=== PATIENT | male | born 1970 | race Caucasian/White ===

== ENCOUNTER 2017-10-10 12:28 | Emergency (ER) | payer OTHER ==
--- NOTE | 2017-10-10 13:24 | ER ---
Nurse's Notes [facility] Name: Ben Joseph Age: 47 yrs Sex: Male : 1970 Arrival Date: 10/10/2017 Time: 12:32 Bed 28 Private MD: None, None Diagnosis: Dental caries;Periodontal disease, unspecified;Unilateral inguinal hernia, without obstruction or gangrene Presentation: 10/10 12:59 Presenting complaint: Patient states: "i have a hernia that is killing my down in my tw2 groin and my tooth hurts". Transition of care: patient was not received from another setting of care. Onset of symptoms was October 10, 2017. Initial Sepsis Screen: Does the patient meet any 2 criteria? No. Patient's initial sepsis screen is negative. Does the patient have a suspected source of infection? Yes: No. Patient's initial sepsis screen is negative. Care prior to arrival: None. 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 - Social history:: Smoking status: Patient/guardian denies using tobacco, Patient uses alcohol, occasionally. Screenin:37 Abuse screen: Denies threats or abuse. Denies injuries from another. Nutritional sv screening: No deficits noted. Tuberculosis screening: No symptoms or risk factors identified. Fall Risk None identified. Assessment: 13:30 General: Appears in no apparent distress. uncomfortable, well developed, Behavior is sv calm, cooperative, appropriate for age. Pain: Complains of pain in mouth Pain currently is 5 out of 10 on a pain scale. Quality of pain is described as throbbing. Neuro: Level of Consciousness is awake, alert, obeys commands, Oriented to person, place, time, situation, Moves all extremities. Full function Gait is steady, Speech is normal. Respiratory: Respiratory effort is even, unlabored, Respiratory pattern is regular, symmetrical. EENT: Reports pain in mouth and left jaw. Derm: Skin is normal. Vital Signs: 13:00 BP 138 / 106; Pulse 82; Resp 18; Temp 98.0(TE); Pulse Ox 99% on R/A; Weight 90.72 kg tw2 (R); Height 6 ft. 0 in. (182.88 cm); Pain 7/10; 13:00 Body Mass Index 27.12 (90.72 kg, 182.88 cm) tw2 ED Course: 12:32 Patient arrived in ED. mr 12:33 None, None is Private Physician. mr 13:00 Triage completed. tw2 13:00 Arm band placed on. tw2 13:09 Seth Lozada MD is Attending Physician. gs 13:11 Sheron Menon, MISA is Primary Nurse. dm5 13:23 Mark Landis MD is Referral Physician. gs 13:35 Patient has correct armband on for positive identification. Bed in low position. sv 13:35 No provider procedures requiring assistance completed. Patient did not have IV access sv during this emergency room visit. Administered Medications: No medications were administered Outcome: 13:24 Discharge ordered by . gs 13:36 Discharged to home ambulatory. sv 13:36 Condition: stable 13:36 Discharge instructions given to patient, Instructed on discharge instructions, follow up and referral plans. Demonstrated understanding of instructions, follow-up care. 13:38 Patient left the ED. sv Signatures: Sheron Menon, RN RN dm5 Iris Dior RN RN sv Rivera, Maria mr Tamiko Workman RN RN tw2 Seth Lozada MD MD
--- NOTE | 2017-10-11 13:38 | EDPHYS ---
Physician Documentation [facility] Name: Ben Joseph Age: 47 yrs Sex: Male : 1970 Arrival Date: 10/10/2017 Time: 12:32 Bed 28 Private MD: None, None ED Physician Seth Lozada HPI: 10/10 13:49 This 47 yrs old Male presents to ER via Ambulatory with complaints of gs Toothache, Hernia. 13:49 The patient presents with broken tooth/teeth, pain. The problem is located in the lower gs left third molar. Onset: The symptoms/episode began/occurred 2 week(s) ago. Duration: The symptoms are continuous. Associated signs and symptoms: Pertinent negatives: chills, dysphagia, fever, swelling, vomiting. Severity of symptoms: At their worst the symptoms were moderate. The patient has been recently seen by a physician: dds called in abx has schedule for extraction monday. 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 - Social history:: Smoking status: Patient/guardian denies using tobacco, Patient uses alcohol, occasionally. ROS: 13:49 Abdomen/GI: Positive for hernia r inguinal. gs Exam: 13:49 Head/Face: Normocephalic, atraumatic. Eyes: Pupils equal round and reactive to light, gs extra-ocular motions intact. Lids and lashes normal. Conjunctiva and sclera are non-icteric and not injected. Cornea within normal limits. Periorbital areas with no swelling, redness, or edema. Neck: Trachea midline, no thyromegaly or masses palpated, and no cervical lymphadenopathy. Supple, full range of motion without nuchal rigidity, or vertebral point tenderness. No Meningismus. Chest/axilla: Normal chest wall appearance and motion. Nontender with no deformity. No lesions are appreciated. Cardiovascular: Regular rate and rhythm with a normal S1 and S2. No gallops, murmurs, or rubs. Normal PMI, no JVD. No pulse deficits. Respiratory: Lungs have equal breath sounds bilaterally, clear to auscultation and percussion. No rales, rhonchi or wheezes noted. No increased work of breathing, no retractions or nasal flaring. Abdomen/GI: Soft, non-tender, with normal bowel sounds. No distension or tympany. No guarding or rebound. No evidence of tenderness throughout. Back: No spinal tenderness. No costovertebral tenderness. Full range of motion. Skin: Warm, dry with normal turgor. Normal color with no rashes, no lesions, and no evidence of cellulitis. MS/ Extremity: Pulses equal, no cyanosis. Neurovascular intact. Full, normal range of motion. Neuro: Awake and alert, GCS 15, oriented to person, place, time, and situation. Cranial nerves II-XII grossly intact. Motor strength 5/5 in all extremities. Sensory grossly intact. Cerebellar exam normal. Normal gait. 13:49 Constitutional: The patient appears alert, awake. 13:49 ENT: Dental exam: abscess, is not appreciated, dental caries, that is mild, specifically in the lower left third molar (#17), gum swelling, not appreciated. 13:49 Abdomen/GI: Hernia: noted in the right femoral area, incarceration, is not appreciated, tenderness, that is mild. Vital Signs: 13:00 BP 138 / 106; Pulse 82; Resp 18; Temp 98.0(TE); Pulse Ox 99% on R/A; Weight 90.72 kg tw2 (R); Height 6 ft. 0 in. (182.88 cm); Pain 7/10; 13:00 Body Mass Index 27.12 (90.72 kg, 182.88 cm) tw2 Procedures: 13:49 Reduction:. reduction of rih, mild pressure no problem with reducing, no incarceration, gs will refer to surgery. MDM: 13:21 Patient medically screened. gs 13:49 Data reviewed: vital signs, nurses notes. Response to treatment: the patient's symptoms gs have markedly improved after treatment, and as a result, I will discharge patient. Administered Medications: No medications were administered Disposition: 10/10/17 13:24 Discharged to Home. Impression: Dental caries, Periodontal disease, unspecified, Unilateral inguinal hernia, without obstruction or gangrene. - Condition is Stable. - Discharge Instructions: Gingivitis, Lnud-on-Bmol, Hernia, [id number], Diet and Dental Disease. - Medication Reconciliation Form, Thank You Letter, Antibiotic Education, Prescription Opioid Use form. - Follow up: Private Physician; When: 2 - 3 days; Reason: Re-evaluation by your physician. Follow up: Mark Landis MD; When: 2 - 3 days; Reason: Re-evaluation by your physician. Signatures: Iris Dior, RN RN Tamiko Workman RN RN tw2 Seth Lozada MD MD
== END 2017-10-10 13:38 | disposition home or self-care (01) ==
LOC: ER 12:28
DX: K05.6 Periodontal disease, unspecified (principal); K40.90 Unilateral inguinal hernia, without obstruction or gangrene, not specified as recurrent
CPT/HCPCS: 99281

== ENCOUNTER 2018-01-15 08:16 | Day surgery (SDC) | payer OTHER ==
--- NOTE | 2018-01-11 14:20 | RAD REPORT ---
EXAM DESCRIPTION: RAD - Chest Pa And Lat (2 Views) - 01/11/2018 2:07 pm CLINICAL HISTORY: Preop chest, pending abdominal wall hernia repair COMPARISON: None. TECHNIQUE: PA and lateral views of the chest were obtained. FINDINGS: The lungs are clear of failure, infiltrate or mass. Interstitial markings are prominent bu t suspected to be baseline. Trachea is midline. Heart size is normal and central vasculature is wit hin normal limits. No pleural effusion or pneumothorax seen. Bony degenerative changes are present. Slight wedging seen of several vertebrae at the thoracolumbar junction. No blastic or lytic componen t. Acute etiology is unlikely. No aortic abnormality. IMPRESSION: No acute cardiopulmonary process. Slight wedging of several vertebrae near the thoracolumbar junction noted but doubtful as being acute .
[2018-01-11 15:39] LABS: Absolute Lymphocytes (CBC) 2.2 K/uL (0.7-4.9); Absolute Monocytes 0.6 K/uL (0.1-1.3); Absolute Neutrophil 3.7 K/uL (1.8-8.0); Basophils % 0.5 % (0-1.3); Eosinophils % 1.1 % (0-4.4); Hematocrit 47.1 % (39.6-49.0); Lymphocytes % 33.6 % (15.3-44.8); MCH 30.1 pg (27.0-35.0); MCV 87.2 fL (80-100); MPV 10.1 fL (7.6-11.3); Monocytes % 9.2 % (3.3-12.3)
--- NOTE | 2018-01-11 19:05 | EKG ---
Test Date: 2018-01-11 Test Time: 14:01:12 Pay Station Attendant: PAIGE MEASUREMENT RESULTS: Intervals: Rate: 66 [place]: 174 QRSD: 102 QT: 398 QTc: 417 [place]: P: 41 [place]: 174 QRS: 17 T: 13 INTERPRETIVE STATEMENTS: Normal sinus rhythm Normal ECG No previous ECG available for comparison Electronically Signed On 01-11-18 19:04:38 CDT by Raymnod Mcclellan
[2018-01-15] MEDS ORDERED: FENTANYL CITR 100 MCG/2 ML ONE (08:34)
[2018-01-15] MEDS ORDERED: CEFAZOLIN/SWI 1gm 1 GM/10 ML SYR ONE (08:43)
[2018-01-15] MEDS ORDERED: Ringers Lactate 1,000 ML IV ONE (08:43)
[2018-01-15] MEDS ORDERED: LIDOCAINE 2% MPF 5 ML VIAL ONE (09:00)
[2018-01-15] MEDS ORDERED: PROPOFOL 200 MG/20 ML VIAL IV ONE (09:00)
[2018-01-15] MEDS ORDERED: MIDAZOLAM HCL 2 MG/2 ML INJ ONE (09:00)
[2018-01-15] MEDS ORDERED: ROCURONIUM 50 MG/5 ML VIAL IV ONE (09:01)
[2018-01-15] MEDS ORDERED: FENTANYL CITR 250 MCG/5 ML ONE (09:01)
[2018-01-15] MEDS ORDERED: ONDANSETRON HCL 40 MG/20 ML VIAL ONE (09:02)
[2018-01-15] MEDS ORDERED: NEOSTIGMINE 1 MG/ML -5 ML SYRINGE ONE (09:03)
[2018-01-15] MEDS ORDERED: GLYCOPYRROLATE 0.2 MG/ML SYR ONE (10:08)
[2018-01-15] MEDS: MEPERIDINE HCL 50 MG/ML AMP ONE ×4 (10:43→11:19)
--- NOTE | 2018-01-15 10:54 | P.BOP ---
Preoperative diagnosis: tender large incarcerated right inguinal hernia Postoperative diagnosis: same Primary procedure: Open repair of tender large incarcerated right inguinal hernia Jewel Bearing Maker: KELLY SMITH Estimated blood loss: <10cc Specimen: hernia sac Findings: as above Anesthesia: General Complications: None Implants: large mesh sheet and plug Transferred to: Recovery Room Condition: Good
[2018-01-15] MEDS ORDERED: LABETALOL HCL 100 MG/20 ML ONE (11:30)
[2018-01-15] MEDS ORDERED: HYDROCODONE/APAP 5/325 MG TAB ONE (12:12)
--- NOTE | 2018-01-15 13:10 | DS ---
Diagnosis: Large incarcerated right inguinal hernia. Procedure: Open repair of large incarcerated right inguinal hernia. Disposition: Home. Activity: As tolerated. No heavy lifting. Followup: Followup in my office in 1 week. Call for appointment [phone]. Discharge Instructions: Keep area dry for 48 hours, then may shower. Cold compresses over the area for the next 24 hours. Medications: Include Vicodin q.4 hours p.r.n. pain. ORIN/ARACELIS Voice ID: [id number] Report ID: [id number]
--- NOTE | 2018-01-15 13:10 | OP ---
Date of Procedure: 01/15/2018 Surgeon: Mark Landis MD Seam Finisher: MOHIT Rendon. Preoperative Diagnosis: Tender large incarcerated right inguinal hernia. Postoperative Diagnosis: Tender large incarcerated right inguinal hernia. Procedure: Open repair of a large incarcerated right inguinal hernia with mesh. Estimated Blood Loss: Less than 10 cc. Specimen: Hernia sac. Findings: Incarcerated omentum on the large right inguinal hernia. Indications: This is the case of a 47-year-old patient, comes to us with above diagnosis. Fully exp lained the benefits, alternatives, and risks of repair of right inguinal hernia with mesh which inclu de, but not limited to infection, bleeding, damage to adjacent structures, anesthesia complication, r ecurrence, chronic pain, chronic numbness, vesicular damage, recurrence, AR, even . He also und erstands this may not relieve any symptoms. He might need more than one surgical intervention. He w as explained also the pros and cons of mesh placement over that area. All the questions were answere d to his satisfaction. He is alright with the use of mesh. Description Of Procedure: The patient was brought to the operating room, placed in supine position. Anesthesia was done without complication. Abdominal area was prepped and draped in a sterile fashio n in the inguinal region. A time-out was called. An incision was made on the right inguinal area. Zach's was opened. External oblique aponeurosis was opened in direction of its fibers to connect t o the superficial inguinal ring. Ilioinguinal nerve and iliohypogastric nerves were identified and p rotected behind external oblique aponeurosis. A Swati was placed around the spermatic cord. Crema steric fibers were opened, making sure that we protected vas deferens and the rest of the spermatic s tructures and then we identified a large hernia sac that was dissected all the way into the deep ingu inal ring. The patient has incarcerated omentum that looks viable, so it was reduced back into the a bdominal cavity. The hernia sac was then twisted, suture ligated with 2-0 Prolene twice. After that , I placed a mesh plug over that deep inguinal ring and secured it with VersaTack and then a mesh she ath on the floor of the canal securing that to the pubic tubercle, shelving edge of inguinal ligament , transversalis fascia, and the tails looped around the spermatic cord without strangulation. The ar ea was irrigated. No bleeding. Ilioinguinal nerve and iliohypogastric nerve brought back into the i nguinal canal. The superficial inguinal ring was reconstructed and external oblique aponeurosis was closed with a 2-0 Prolene in a running fashion making sure the nerves are not included. The area was irrigated. Subcutaneous tissue closed with 3-0 chromic and skin with [place]. Sponge count and ins trument counts were correct. At the end of the case, the testicles were in the scrotum. The patient was sent to recovery in stable condition. ORIN/ARACELIS Voice ID: [id number] Report ID: [id number]
== END 2018-01-15 13:15 | disposition home or self-care (01) ==
LOC: OR 08:16
PROVIDERS: ATTEND Surgery
PROC: 0YU50JZ Supplement Right Inguinal Region with Synthetic Substitute, Open Approach (ICD-10-PCS; principal; 2018-01-15 10:00)
DX: K40.30 Unilateral inguinal hernia, with obstruction, without gangrene, not specified as recurrent (principal)
CPT/HCPCS: 36415; 71046; 80048; 85025; 88302; 93005; J0690; J2175; J2250; J2405; J2710; J3010

== ENCOUNTER 2021-11-15 20:16 | Emergency (ER) | payer BC, OTHER ==
--- OUTSIDE RECORDS SUMMARY | 2021-11-15 20:21 | XMS REPORT | Continuity of Care Document ---
:1970 Author Organization [facility] t Address [address] [place] [address] Care Team Providers Name Role Phone GIOVANNA Attending Clinician Unavailable SON Attending Clinician Unavailable LAWANDA Attending Clinician Unavailable Lenny Salamanca Attending Clinician [phone] GIOVANNA Admitting Clinician Unavailable SON Admitting Clinician Unavailable LAWANDA Admitting Clinician Unavailable Payers Payer Name Policy Type Policy Number Effective Date Expiration Date S anace [place] [id number] 2020 00:00:00 [place] Problems Condition Condition Condition Status Onset Resolution Last Treating Co mments Source Name Details Category Date Date Treatment Clinician Date Hypertensi Hypertensi Problem Active 2020-06 [facility] [place] ve ve 2-21 da disorder Disorder 00:00: Medica l 00 Group Anxiety Anxiety Problem Active 2019-06 [place] 2-28 da 00:00: Medical 00 Group Bilateral Bilateral Problem Active 2019-06 [facility] [place] shoulder Shoulder 2-28 da joint pain Joint Pain 00:00: Me dical 00 Group Essential Essential Problem Active 2019-06 [facility] hypertensi Hypertensi 2-10 da on on 00:00: Medical 00 Group Gastroesop Gastroesop Problem Active 2019-06 [facility] [place] hageal hageal 2-10 da reflux Reflux 00:00: Medical disease Disease 00 Group Hypothyroi Hypothyroi Problem Active 0 M [facility] dism dism 9-25 da 00:00: Medical 00 Group Allergies, Adverse Reactions, Alerts This patient has no known allergies or adverse reactions. Social History Smoking Status Start Date Stop Date Source Never Smoker [facility] Medications Ordered Filled Start Stop Current Ordering Indication Dosage Frequency Signature Comments Components Source Medication Medication Date Date Medication? Clinician (SIG) Name Name Euthyrox 25 Euthyrox 25 No Euthyrox [place] mcg tablet mcg tablet 25 mcg d a TAKE ONE TAKE ONE tablet Medic al (1) (1) TAKE ONE Group TABLET(S) TABLET(S) (1) BY MOUTH BY MOUTH TABLET(S) ONCE A DAY. ONCE A DAY. BY MOUTH ONCE A DAY. lisinopril lisinopril No lisinopril [place] 20 mg 20 mg 20 mg da tablet TAKE tablet TAKE tablet Medical ONE (1) ONE (1) TAKE ONE Group TABLET(S) TABLET(S) (1) BY MOUTH BY MOUTH TABLET(S) ONCE A DAY. ONCE A DAY. BY MOUTH ONCE A DAY. nebivolol nebivolol No nebivolol [place] 10 mg 10 mg 10 mg da tablet TAKE tablet TAKE tablet Medical ONE (1) ONE (1) TAKE ONE Group TABLET(S) TABLET(S) (1) BY MOUTH BY MOUTH TABLET(S) ONCE A DAY. ONCE A DAY. BY MOUTH ONCE A DAY. rosuvastati rosuvastati No rosuvastat [place] n 10 mg n 10 mg in 10 mg da tablet TAKE tablet TAKE tablet Medical ONE (1) ONE (1) TAKE ONE Group TABLET(S) TABLET(S) (1) BY MOUTH BY MOUTH TABLET(S) ONCE A DAY. ONCE A DAY. BY MOUTH ONCE A DAY. Vital Signs Vital Name Observation Time Observation Value Comments Source BP Diastolic 2021-11-11 00:00:00 78 mm[Hg] [facility] Height 2021-11-11 00:00:00 72 [in_i] [facility] BMI (Body Mass 2021-11-11 00:00:00 32.4 kg/m2 [facility] Index) Group BP Systolic 2021-11-11 00:00:00 112 mm[facility]Hg] [facility] Body Weight 2021-11-11 00:00:00 239 [lb_av] [facility] BP Diastolic 2021-09-16 00:00:00 80 mm[Hg] [facility] Height 2021-09-16 00:00:00 72 [in_i] [facility] BMI (Body Mass 2021-09-16 00:00:00 30.2 kg/m2 [facility] Index) Group BP Systolic 2021-09-16 00:00:00 132 mm[Hg] [facility] Body Weight 2021-09-16 00:00:00 223 [lb_av] [facility] BP Diastolic 2021-08-17 00:00:00 97 mm[Hg] [facility] Height 2021-08-17 00:00:00 72 [in_i] [facility] BMI (Body Mass 2021-08-17 00:00:00 29.6 kg/m2 [facility] Index) Group BP Systolic 2021-08-17 00:00:00 143 mm[Hg] [facility] Body Weight 2021-08-17 00:00:00 218.6 [lb_av] [facility] BP Diastolic 2021-08-03 00:00:00 76 mm[Hg] [facility] Height 2021-08-03 00:00:00 72 [in_i] [facility] BMI (Body Mass 2021-08-03 00:00:00 29.7 kg/m2 [facility] Index) Group BP Systolic 2021-08-03 00:00:00 122 mm[Hg] [facility] Body Weight 2021-08-03 00:00:00 219.2 [lb_av] [facility] BP Diastolic 2021-07-06 00:00:00 80 mm[Hg] [facility] Height 2021-07-06 00:00:00 72 [in_i] [facility] BMI (Body Mass 2021-07-06 00:00:00 29.6 kg/m2 [facility] Index) Group BP Systolic 2021-07-06 00:00:00 120 mm[Hg] [facility] Body Weight 2021-07-06 00:00:00 218.3 [lb_av] [facility] BP Diastolic 2021-06-08 00:00:00 80 mm[Hg] [facility] Height 2021-06-08 00:00:00 72 [in_i] [facility] BMI (Body Mass 2021-06-08 00:00:00 29.5 kg/m2 [facility] Index) Group BP Systolic 2021-06-08 00:00:00 122 mm[Hg] [facility] Body Weight 2021-06-08 00:00:00 217.3 [lb_av] [facility] Procedures Procedure Date / Time Performing Source Performed Clinician NM, hepatobiliary scan, w/ CCK 2021-06-08 [facility] Esophagogastroduodenoscopy (Surg) [facility] Plan of Care Planned Activity Planned Date Details Comments Source Future Appointment 2022-02-17 Alex Alvarengae, 600 [facility] 08:30:00 [facility] [address]; , [place] [address] Encounters Start End Encounter Admission Attending Care Care Encounter Source Date/Time Date/Time Type Type Clinicians Facility Department ID 2021-11-11 2021-11-11 Outpatient IHDE_G MMG [facility] [id number] 022 [place] 04:16:00 04:16:00 0527 [facility] 2021-11-11 2021-11-11 Outpatient IHDE_G MMG MM[facility] [id number] [place] 04:16:00 04:16:00 0526 [facility] 2021-11-11 2021-11-11 Alex [facility] [place] - [id number] [facility] 00:00:00 00:00:00 Carli Gutierrez MD: Medical Medica l [address] [facility] [address], [place] [address] , Ph. [phone] 2021-10-26 2021-10-26 Outpatient IHDE_G MMG MMG [id number] 022 [place] 01:00:00 01:00:00 0510 [facility] 2021-10-26 2021-10-26 Outpatient IHDE_G MMG MMG [id number] [id number] [place] 01:00:00 01:00:00 0511 [facility] 2021-10-26 2021-10-26 Outpatient IHDE_G MMG MMG [id number] [place] 01:00:00 01:00:00 0513 [facility] 2021-10-25 2021-10-25 Outpatient IHDE_G MMG MMG [id number] [place] 05:57:00 05:57:00 0509 [facility] 2021-10-13 2021-10-13 Outpatient SAGLIME_DEBORAH [facility] [place] [id number] [place] 04:51:00 04:51:00 N [id number] [facility] Program 2021-10-07 2021-10-07 Outpatient ERSTEVENSON_R [facility] [id number] [place] 11:35:00 11:35:00 [facility] 2021-10-07 2021-10-07 Outpatient Cheikh [facility] [id number] 00:00:00 00:00:00 Jc [id number] Metaline [id number] 2021-10-01 2021-10-01 Outpatient IHDE_G MMG [facility] [id number] 022 [place] 03:31:00 03:31:00 0415 [facility] 2021-10-01 2021-10-01 Outpatient IHDE_G MMG MMG [id number] 022 [place] 03:31:00 03:31:00 0428 [facility] 2021-09-16 2021-09-16 Outpatient IHDE_G MMG MMG [id number] [place] 09:29:00 09:29:00 0331 [facility] 2021-09-16 2021-09-16 Outpatient IHDE_G MMG [facility] [id number] [place] 09:29:00 09:29:00 0404 [facility] 2021-09-16 2021-09-16 Alex [facility] [place] - [id number] M [facility] 00:00:00 00:00:00 Carli Gutierrez MD: Medical Medica [address], [facility] [place] [address] , Ph. [phone] 2021-08-18 2021-08-18 Outpatient IHDE_G MMG MMG [id number] 022 [place] 04:01:00 04:01:00 0302 Medical Group 2021-08-17 2021-08-17 Outpatient IHDE_G MMG MMG [id number] [place] 09:29:00 09:29:00 0301 [facility] 2021-08-17 2021-08-17 Alex [facility] [place] - [id number] [place] 00:00:00 00:00:00 Carli Gutierrez MD: Medical Medica [address], surgery [place] [address] , Ph. [phone] 2021-08-03 2021-08-03 Outpatient IHDE_G MMG MMG [id number] [place] 09:11:00 09:11:00 0215 [facility] 2021-08-03 2021-08-03 Outpatient IHDE_G MMG MMG [id number] [place] 09:11:00 09:11:00 0216 [facility] 2021-08-03 2021-08-03 Outpatient IHDE_G MMG MMG [id number] [place] 09:11:00 09:11:00 0218 [facility] 2021-08-03 2021-08-03 Alxe MM[facility] [place] - [id number] M [place] 00:00:00 00:00:00 Carli Gutierrez MD: Medical Medica [address], [place] [address] , Ph. [phone] 2021-07-21 2021-07-21 Outpatient IHDE_G MMG MMG [id number] 022 [place] 12:11:00 12:11:00 0202 [facility] 2021-07-06 2021-07-06 Outpatient IHDE_G MMG MMG [id number] [place] 09:35:00 09:35:00 0118 [facility] 2021-07-06 2021-07-06 Outpatient IHDE_G MMG MMG [id number] [place] 09:35:00 09:35:00 0119 [facility] 2021-07-06 2021-07-06 Alex [facility] [place] - [id number] [place] 00:00:00 00:00:00 Carli Gutierrez MD: Medical Medica l 600 [facility] [address], [place] [address] , Ph. [phone] 2021-06-09 2021-06-09 Outpatient IHDE_G MMG MMG [id number] 022 [place] 03:04:00 03:04:00 0105 [facility] 2021-06-09 2021-06-09 Outpatient IHDE_G MMG MMG [id number] 022 [place] 03:04:00 03:04:00 0107 [facility] 2021-06-08 2021-06-08 Outpatient IHDE_G MMG MMG [id number] [place] 10:37:00 10:37:00 1221 [facility] 2021-06-08 2021-06-08 Outpatient IHDE_G MMG MMG [id number] 021 [place] 10:37:00 10:37:00 1222 [facility] 2021-06-08 2021-06-08 Alex [facility] [place] - [id number] M [facility] 00:00:00 00:00:00 Carli Gutierrez MD: Medical Medica l 600 [facility] [address], [place] [address] , Ph. [phone] 2021-05-27 2021-05-27 Outpatient IHDE_G MMG MMG [id number] 021 [place] 11:34:00 11:34:00 1209 [facility] 2021-04-06 2021-04-06 Outpatient ERSTEVENSON_R [facility] [id number] - [place] 03:26:00 03:26:00 019 [facility] 2021-04-06 2021-04-06 Outpatient Cheikh [facility] [id number] 00:00:00 00:00:00 Jc [id number] Galvez [id number] 2021-04-06 2021-04-06 Outpatient Cheikh [facility] [id number] 00:00:00 00:00:00 Jc [id number]-a Lenny [id number] 2021-01-01 2021-01-01 Outpatient ERICKSON_R [facility] [id number] [place] 11:56:00 11:56:00 716 [facility] 2021-01-01 2021-01-01 Outpatient Cheikh [facility] [id number] 00:00:00 00:00:00 Jc [id number] Lenny [id number] 2020-12-11 2020-12-11 Outpatient ERICKSON_R [facility] [id number] [place] 03:22:00 03:22:00 625 [facility] 2020-09-25 2020-09-25 Outpatient ERICKSON_R [facility] [id number] - [place] 04:28:00 04:28:00 409 [facility] 2020-09-25 2020-09-25 Outpatient Cheikh, [facility] [id number] 00:00:00 00:00:00 Jc [id number] Lenny [id number] 2020-06-26 2020-06-26 Outpatient ERICKSON_R [facility] [id number] - [place] 04:05:00 04:05:00 108 [facility] 2020-06-18 2020-06-18 Outpatient ERICKSON_R [facility] [id number] - [place] 12:43:00 12:43:00 231 [facility] 2020-06-18 2020-06-18 [id number] [place] 09:53:00 09:53:00 N [id number] [facility] 2020-06-15 2020-06-15 Outpatient ERICKSON_R [facility] [id number] - [place] 10:54:00 10:54:00 228 [facility] Results Test Description Test Time Test Comments Results Result Comments Source CBC W Auto Differential panel - Blood 2021-08-03 07:26:00 Test Item Value Reference Range Interpretation Comme nts white blood count (test code = white blood count) 8.2 K/uL 4.0- 12.3 red blood count (test code = red blood count) 4.41 M/uL 3.80-5.8 0 hemoglobin (test code = hemoglobin) 13.3 g/dL 11.7-17.2 hematocrit (test code = hematocrit) 40.6 % 35.0-51.0 MCV [Entitic volume] (test code = 80029-3) 92.1 fL 83.0-100.0 mean corpuscular hemoglobin (test code = mean corpuscular 30.2 pg 26.8-33.4 hemoglobin) mean corpuscular HGB conc (test code = mean corpuscular HGB 32.8 g/dL 30.0-35.0 conc) red cell distribution width (test code = red cell 12.7 % 12.0 -14.0 distribution width) platelet count (test code = platelet count) 235 K/uL 175-450 mean platelet volume (test code = mean platelet volume) 10.0 fL 9.4-12.6 Segmented neutrophils/100 leukocytes in Blood (test code = 68.0 % 44.7-82.4 95449-7) Immature granulocytes [#/volume] in Blood (test code = 0.04 K/uL 0.00-0.03 H 12492-8) lymphocyte% (test code = lymphocyte%) 19.8 % 10.0-50.0 mono % (test code = mono %) 11.2 % 3.9-13.4 eos % (test code = eos %) 0.1 % 0.0-6.4 Basophils/100 leukocytes in Specimen (test code = 64592-4) 0.4 % 0.2-1.2 Band form neutrophils [#/volume] in Blood (test code = 5.57 K/uL 1.78-5.38 H 19158-6) Lymphocytes [#/volume] in Specimen by Automated count (test 1.62 K/uL 1.32-3.57 code = 56700-5) mono # (test code = mono #) 0.92 K/uL 0.30-0.82 H eos # (test code = eos #) 0.01 K/uL 0.04-0.54 L basophil # (test code = basophil #) 0.03 K/uL 0.01-0.08 NRBC% (test code = NRBC%) 0 /100 WBC 0-0.2 NRBC# (test code = NRBC#) 0 K/uL [facility] - Serum or Plasma 2021-08-03 07:26:00 Test Item Value Reference Range Interpretation Comments Glucose [Mass/volume] in Serum or 121 mg/dL 74-106 H Plasma (test code = 2345-7) Urea nitrogen [Mass/volume] in 11 mg/dL 6-20 Serum or Plasma (test code = 3094-0) osmolality calculated,serum (test 275 mOsm/kg 280-300 L code = osmolality calculated,serum) creatinine (test code = 0.95 mg/dL 0.70-1.20 creatinine) glomerular filtration rate (test >60.00 code = glomerular filtration rate) Urea nitrogen/Creatinine [Mass 11.6 12.0-20.0 L Ratio] in Serum or Plasma (test code = 3097-3) sodium level (test code = sodium 137 mmol/L 135-145 level) potassium level (test code = 3.8 mmol/L 3.5-5.2 potassium level) chloride level (test code = 100 mmol/L 98-108 chloride level) CO2 (test code = CO2) 25 mmol/L 21-32 anion gap (test code = anion gap) 15.8 mEq/L 12.0-20.0 calcium level (test code = 9.1 mg/dL 8.6-10.0 calcium level) total protein (test code = total 7.5 g/dL 6.6-8.7 protein) albumin (test code = albumin) 4.4 g/dL 3.5-5.2 globulin (test code = globulin) 3.1 g/dL 1.5-4.5 A/G ratio (test code = A/G ratio) 1.4 >1.0 bilirubin,total (test code = 0.8 mg/dL 0.0-1.2 bilirubin,total) AST/SGOT (test code = AST/SGOT) 46 U/L 15-40 H Alanine aminotransferase 37 U/L 0-41 [Enzymatic activity/volume] in Serum or Plasma (test code = 1742-6) Alkaline phosphatase [Enzymatic 93 U/L 40-130 activity/volume] in Serum or Plasma (test code = 6768-6) [facility], method unspecified - [id number] 00:00:00NeutrophilsBandLymphocyteAtypical LymphMonocyteEosinophilBasophilMetamyelocyteMyelocytePromyelocyteBlastsNucleated Red Blood CellAbs Neutrophil Count (Man)Abs Lymph Count (Man)Abs Monocyte Count (Man)Abs Eosinophil Count (Man)Abs Basophil Count (Man)Platelet Estimate [facility] ([facility]OVID-19) RNA [Presence] in Respiratory specimen by SHANTE with probe [id number] 06:37:2976828-7HvyrxubuoBeacham Memorial HospitalComprehensive metabolic 2000 panel - Serum or [id number] 08:18:00 Test Item Value Reference Range Interpretation Comments glucose (test code = glucose) 102 mg/dL 74-106 Urea nitrogen [Mass/volume] in 11 mg/dL 6-20 Serum or Plasma (test code = 3094-0) osmolality calculated,serum (test 279 mOsm/kg 280-300 L code = osmolality calculated,serum) creatinine (test code = 0.76 mg/dL 0.70-1.20 creatinine) glomerular filtration rate (test >60.00 code = glomerular filtration rate) Urea nitrogen/Creatinine [Mass 14.5 12.0-20.0 Ratio] in Serum or Plasma (test code = 3097-3) sodium level (test code = sodium 140 mmol/L 135-145 level) Potassium [Moles/volume] in Body 4.5 mmol/L 3.5-5.2 fluid (test code = 2821-7) chloride level (test code = 105 mmol/L 98-108 chloride level) CO2 (test code = CO2) 27 mmol/L 21-32 anion gap (test code = anion gap) 12.5 mEq/L 12.0-20.0 calcium level (test code = 8.8 mg/dL 8.6-10.0 calcium level) total protein (test code = total 7.8 g/dL 6.6-8.7 protein) albumin (test code = albumin) 4.4 g/dL 3.5-5.2 globulin (test code = globulin) 3.4 g/dL 1.5-4.5 A/G ratio (test code = A/G ratio) 1.3 >1.0 bilirubin,total (test code = 0.4 mg/dL 0.0-1.2 bilirubin,total) AST/SGOT (test code = AST/SGOT) 19 U/L 15-40 Alanine aminotransferase 16 U/L 0-41 [Enzymatic activity/volume] in Serum or Plasma (test code = 1742-6) Alkaline phosphatase [Enzymatic 106 U/L 40-130 activity/volume] in Serum or Plasma (test code = 6768-6) [facility] W Auto Differential panel - [id number] 00:00:00 Test Item Value Reference Range Interpretation Comments white blood count (test code = 6.1 K/uL 4.0-12.3 white blood count) red blood count (test code = red 4.86 M/uL 3.80-5.80 blood count) hemoglobin (test code = 14.7 g/dL 11.7-17.2 hemoglobin) hematocrit (test code = 43.4 % 35.0-51.0 hematocrit) MCV [Entitic volume] (test code = 89.3 fL 83.0-100.0 98892-0) mean corpuscular hemoglobin (test 30.2 pg 26.8-33.4 code = mean corpuscular hemoglobin) mean corpuscular HGB conc (test 33.9 g/dL 30.0-35.0 code = mean corpuscular HGB conc) red cell distribution width (test 12.1 % 12.0-14.0 code = red cell distribution width) platelet count (test code = 200 K/uL 175-450 platelet count) mean platelet volume (test code = 9.7 fL 9.4-12.6 mean platelet volume) Segmented neutrophils/100 59.3 % 44.7-82.4 leukocytes in Blood (test code = 54631-7) Immature granulocytes [#/volume] 0.02 K/uL 0.00-0.03 in Blood (test code = 68931-1) lymphocyte% (test code = 30.2 % 10.0-50.0 lymphocyte%) mono % (test code = mono %) 9.0 % 3.9-13.4 eos % (test code = eos %) 1.0 % 0.0-6.4 Basophils/100 leukocytes in 0.2 % 0.2-1.2 Specimen (test code = 73473-5) Band form neutrophils [#/volume] 3.64 K/uL 1.78-5.38 in Blood (test code = 84843-2) Lymphocytes [#/volume] in Specimen 1.85 K/uL 1.32-3.57 by Automated count (test code = 89043-8) mono # (test code = mono #) 0.55 K/uL 0.30-0.82 eos # (test code = eos #) 0.06 K/uL 0.04-0.54 basophil # (test code = basophil 0.01 K/uL 0.01-0.08 #) NRBC% (test code = NRBC%) 0 /100 WBC 0-0.2 NRBC# (test code = NRBC#) 0 K/uL [facility] CenterDifferent[facility] panel, method unspecified - [id number] 00:00:00NeutrophilsBandLymphocyteAtypical LymphMonocyteEosinophilBasophilMetamyelocyteMyelocytePromyelocyteBlastsNucleated Red Blood CellAbs Neutrophil Count (Man)Abs Lymph Count (Man)Abs Monocyte Count (Man)Abs Eosinophil Count (Man)Abs Basophil Count (Man)Platelet EstimatePlatelet MorphologyPoikilocytosisAni socytosisMicrocytosisMacrocytosisTarget CellsTear Drop CellsOvalocytesToxic GranulationHypersegmented PolysToxic VacuolationSmudge CellsMatagoNorthwest Mississippi Medical CenterARS-CoV-2 (COVID-19) RNA [Presence] in Respiratory specimen by SHANTE with probe [id number] 08:10:7958700-2QrmidqzevOchsner Rush HealthARS-CoV-2 (COVID-19) RNA [Presence] in Respiratory specimen by SHANTE with probe detection 2021-06-21 08:10:8387714-0QsjouikcnBeacham Memorial HospitalComprehensive metabolic 2000 panel - Serum or [id number] 10:48:00 Test Item Value Reference Range Interpretation Comments glucose (test code = glucose) 111 mg/dL 74-106 H Urea nitrogen [Mass/volume] in 11 mg/dL 6-20 Serum or Plasma (test code = 3094-0) osmolality calculated,serum (test 278 mOsm/kg 280-300 L code = osmolality calculated,serum) creatinine (test code = 0.8 mg/dL 0.70-1.20 creatinine) glomerular filtration rate (test >60.00 code = glomerular filtration rate) Urea nitrogen/Creatinine [Mass 13.8 12-20 Ratio] in Serum or Plasma (test code = 3097-3) sodium level (test code = sodium 139 mmol/L 135-145 level) Potassium [Moles/volume] in Body 4.4 mmol/L 3.5-5.2 fluid (test code = 2821-7) chloride level (test code = 102 mmol/L 98-108 chloride level) CO2 (test code = CO2) 27 mmol/L 21-32 anion gap (test code = anion gap) 14.4 mEq/L 12-20 calcium level (test code = 9.0 mg/dL 8.6-10.0 calcium level) total protein (test code = total 7.6 g/dL 6.6-8.7 protein) albumin (test code = albumin) 4.5 g/dL 3.5-5.2 globulin (test code = globulin) 3.1 gm/dL A/G ratio (test code = A/G ratio) 1.5 >1.0 bilirubin,total (test code = 0.6 mg/dL 0.0-1.2 bilirubin,total) AST/SGOT (test code = AST/SGOT) 20 U/L 15-40 Alanine aminotransferase 15 U/L 0-41 [Enzymatic activity/volume] in Serum or Plasma (test code = 1742-6) Alkaline phosphatase [Enzymatic 105 U/L 40-130 activity/volume] in Serum or Plasma (test code = 6768-6) [facility] 2000 panel - Serum or Plasma 2021-06-16 10:48:00 Test Item Value Reference Range Interpretation Comments glucose (test code = glucose) 111 mg/dL 74-106 H Urea nitrogen [Mass/volume] in 11 mg/dL 6-20 Serum or Plasma (test code = 3094-0) osmolality calculated,serum (test 278 mOsm/kg 280-300 L code = osmolality calculated,serum) creatinine (test code = 0.8 mg/dL 0.70-1.20 creatinine) glomerular filtration rate (test >60.00 code = glomerular filtration rate) Urea nitrogen/Creatinine [Mass 13.8 12-20 Ratio] in Serum or Plasma (test code = 3097-3) sodium level (test code = sodium 139 mmol/L 135-145 level) Potassium [Moles/volume] in Body 4.4 mmol/L 3.5-5.2 fluid (test code = 2821-7) chloride level (test code = 102 mmol/L 98-108 chloride level) CO2 (test code = CO2) 27 mmol/L 21-32 anion gap (test code = anion gap) 14.4 mEq/L 12-20 calcium level (test code = 9.0 mg/dL 8.6-10.0 calcium level) total protein (test code = total 7.6 g/dL 6.6-8.7 protein) albumin (test code = albumin) 4.5 g/dL 3.5-5.2 globulin (test code = globulin) 3.1 gm/dL A/G ratio (test code = A/G ratio) 1.5 >1.0 bilirubin,total (test code = 0.6 mg/dL 0.0-1.2 bilirubin,total) AST/SGOT (test code = AST/SGOT) 20 U/L 15-40 Alanine aminotransferase 15 U/L 0-41 [Enzymatic activity/volume] in Serum or Plasma (test code = 1742-6) Alkaline phosphatase [Enzymatic 105 U/L 40-130 activity/volume] in Serum or Plasma (test code = 6768-6) [facility] W Auto Differential panel - [id number] 00:00:00 Test Item Value Reference Range Interpretation Comments white blood count (test code = 5.3 K/uL 4.0-12.3 white blood count) red blood count (test code = red 4.76 M/uL 3.80-5.80 blood count) hemoglobin (test code = 14.5 g/dL 11.7-17.2 hemoglobin) hematocrit (test code = 43.6 % 35.0-51.0 hematocrit) MCV [Entitic volume] (test code = 91.6 fL 83-100 97806-6) mean corpuscular hemoglobin (test 30.5 pg 26.8-33.4 code = mean corpuscular hemoglobin) mean corpuscular HGB conc (test 33.3 g/dL 30-35 code = mean corpuscular HGB conc) red cell distribution width (test 12.4 % 12.0-14.0 code = red cell distribution width) platelet count (test code = 199 K/uL 175-450 platelet count) mean platelet volume (test code = 9.9 fL 9.4-12.6 mean platelet volume) Segmented neutrophils/100 53.8 % 44.7-82.4 leukocytes in Blood (test code = 89030-7) Immature granulocytes [#/volume] 0.0 K/uL 0.0-0.03 in Blood (test code = 96672-3) lymphocyte% (test code = 32.8 % 10.0-50.0 lymphocyte%) mono % (test code = mono %) 10.9 % 3.9-13.4 eos % (test code = eos %) 1.7 % 0.0-6.4 Basophils/100 leukocytes in 0.6 % 0.2-1.2 Unspecified specimen (test code = 08221-9) Band form neutrophils [#/volume] 2.86 K/uL 1.78-5.38 in Blood (test code = 99729-2) Lymphocytes [#/volume] in 1.7 K/uL 1.32-3.57 Unspecified specimen by Automated count (test code = 11678-4) mono # (test code = mono #) 0.58 K/uL 0.30-0.82 eos # (test code = eos #) 0.09 K/uL 0.04-0.54 basophil # (test code = basophil 0.03 K/uL 0.01-0.08 #) NRBC% (test code = NRBC%) 0 /100 WBC 0-0.2 NRBC# (test code = NRBC#) 0 K/uL [facility], method unspecified - [id number] 00:00:00NeutrophilsBandLymphocyteAtypical LymphMonocyteEosinophilBasophilMetamyelocyteMyelocyteAbs Neutrophil Count (Man)Abs Lymph Count (Man)Abs Monocyte Count (Man)Abs Eosinophil Count (Man)Abs Basophil Count (Man)Platelet EstimatePlatelet MorphologyPoikilocytosisAnisocytosisMicrocytosisMacrocytosisTarget CellsTear Drop CellsOvalocytesToxic GranulationBurr CellsRouleauMaputnam general hospitala [facility] W Auto Differential panel - [id number] 00:00:00 Test Item Value Reference Range Interpretation Comments white blood count (test code = 5.3 K/uL 4.0-12.3 white blood count) red blood count (test code = red 4.76 M/uL 3.80-5.80 blood count) hemoglobin (test code = 14.5 g/dL 11.7-17.2 hemoglobin) hematocrit (test code = 43.6 % 35.0-51.0 hematocrit) MCV [Entitic volume] (test code = 91.6 fL 83-100 58302-0) mean corpuscular hemoglobin (test 30.5 pg 26.8-33.4 code = mean corpuscular hemoglobin) mean corpuscular HGB conc (test 33.3 g/dL 30-35 code = mean corpuscular HGB conc) red cell distribution width (test 12.4 % 12.0-14.0 code = red cell distribution width) platelet count (test code = 199 K/uL 175-450 platelet count) mean platelet volume (test code = 9.9 fL 9.4-12.6 mean platelet volume) Segmented neutrophils/100 53.8 % 44.7-82.4 leukocytes in Blood (test code = 78289-7) Immature granulocytes [#/volume] 0.0 K/uL 0.0-0.03 in Blood (test code = 62662-2) lymphocyte% (test code = 32.8 % 10.0-50.0 lymphocyte%) mono % (test code = mono %) 10.9 % 3.9-13.4 eos % (test code = eos %) 1.7 % 0.0-6.4 Basophils/100 leukocytes in 0.6 % 0.2-1.2 Unspecified specimen (test code = 70386-5) Band form neutrophils [#/volume] 2.86 K/uL 1.78-5.38 in Blood (test code = 45488-0) Lymphocytes [#/volume] in 1.7 K/uL 1.32-3.57 Unspecified specimen by Automated count (test code = 73722-9) mono # (test code = mono #) 0.58 K/uL 0.30-0.82 eos # (test code = eos #) 0.09 K/uL 0.04-0.54 basophil # (test code = basophil 0.03 K/uL 0.01-0.08 #) NRBC% (test code = NRBC%) 0 /100 WBC 0-0.2 NRBC# (test code = NRBC#) 0 K/uL [facility]Different[facility] panel, method unspecified - [id number] 00:00:00NeutrophilsBandLymphocyteAtypical LymphMonocyteEosinophilBasophilMetamyelocyteMyelocyteAbs Neutrophil Count (Man)Abs Lymph Count (Man)Abs Monocyte Count (Man)Abs Eosinophil Count (Man)Abs Basophil Count (Man)Platelet EstimatePlatelet MorphologyPoikilocytosisAnisocytosisMicrocytosisMacrocytosisTarget CellsTear Drop CellsOvalocytesToxic GranulationBurr CellsRouleauSouthwest Mississippi [facility] Medical Center
[2021-11-15] MEDS ORDERED: METOCLOPRAMIDE 10 MG/2mL INJ ONE (22:15)
[2021-11-15] MEDS ORDERED: NA CHLORIDE 0.9% 1,000 ML ONE (22:16)
[2021-11-15] MEDS ORDERED: DIPHENHYDRAMINE 50 MG/ML VIAL ONE (22:16)
[2021-11-15 23:18] LABS: Absolute Lymphocytes (CBC) 1.9 K/uL (0.7-4.9); Hematocrit 41.1 % (39.6-49.0); Lymphocytes % 32.1 % (15.3-44.8); MPV 8.8 fL (7.6-11.3); RBC Red Blood Cell Count 4.49 M/uL (4.33-5.43)
[2021-11-15 23:44] LABS: Albumin 3.6 g/dL (3.4-5.0); Bilirubin Total 0.3 mg/dL (0.2-1.0); Protein, Total 7.2 g/dL (6.4-8.2); Troponin High Sensitivity 4.6 pg/mL (<58.9)
--- NOTE | 2021-11-16 03:32 | EDPHYS ---
Physician Documentation [facility] Name: Ben Joseph Age: 51 yrs Sex: Male : 1970 Arrival Date: 11/15/2021 Time: 20:21 Bed 27 Private MD: ED Physician Rpi Farnsworth HPI: 11/15 23:37 This 51 yrs old Male presents to ER via Ambulatory with complaints of Abdominal Pain, jmm Abdominal Problem. 23:37 The patient presents with abdominal pain. Onset: The symptoms/episode began/occurred jm gradually, 4 day(s) ago. The symptoms do not radiate. Associated signs and symptoms: Pertinent positives: nausea, shortness of breath. The symptoms are described as achy, intermittent. Modifying factors: The symptoms are alleviated by nothing, the symptoms are aggravated by nothing. The patient has experienced similar episodes in the past. Historical: - Allergies: 20:31 No Known Allergies; jb4 - Home Meds: 20:31 lisinopril 20 mg Oral tab 1 tab once daily [Active]; levothyroxine 25 mcg tab 1 tab jb4 once daily [Active]; Bystolic oral [Active]; - PMHx: 20:31 ruptured spleen; Hypothyroidism; HTN; hernia; jb4 - PSHx: 20:31 hernia repair; Appendectomy; jb4 - Immunization history:: Adult Immunizations up to date. - Social history:: Smoking status: Patient denies any tobacco usage or history of. Patient uses alcohol, occasionally. Patient/guardian denies using street drugs. ROS: 23:37 Constitutional: Negative for fever, chills, and weight loss, Cardiovascular: Negative jm for chest pain, palpitations, and edema, Respiratory: Negative for shortness of breath, cough, wheezing, and pleuritic chest pain. 23:37 Abdomen/GI: Positive for abdominal pain. 23:37 All other systems are negative. Exam: 23:37 Constitutional: This is a well developed, well nourished patient who is awake, alert, jmm and in no acute distress. Head/Face: atraumatic. Eyes: EOMI, no conjunctival erythema appreciated ENT: Moist Mucus Membranes Neck: Trachea midline, Supple Chest/axilla: Normal chest wall appearance and motion. Cardiovascular: Regular rate and rhythm. No edema appreciated Respiratory: Normal respirations, no respiratory distress appreciated 23:37 Back: Normal ROM Skin: General appearance color normal MS/ Extremity: Moves all extremities, no obvious deformities appreciated, no edema noted to the lower extremities Neuro: Awake and alert Psych: Behavior is normal, Mood is normal, Patient is cooperative and pleasant 23:37 Abdomen/GI: Inspection: abdomen appears normal, Bowel sounds: normal, Palpation: soft, moderate abdominal tenderness, in all quadrants. Vital Signs: 20:28 BP 116 / 76; Pulse 91; Resp 16; Temp 98.1; Pulse Ox 96% on R/A; Weight 107.05 kg (R); jb4 Height 6 ft. 0 in. (182.88 cm) (R); Pain 7/10; 22:30 BP 113 / 77; Pulse 81; Resp 16; Pulse Ox 97% on R/A; ll3 11/16 00:00 BP 113 / 80; Pulse 75; Resp 17; Pulse Ox 98% on R/A; ll3 01:00 BP 121 / 79; Pulse 71; Resp 17; Pulse Ox 98% on R/A; ll3 03:30 BP 115 / 78; Pulse 72; Resp 17; Pulse Ox 97% on R/A; ll3 11/15 20:28 Body Mass Index 32.01 (107.05 kg, 182.88 cm) banner MDM: 11/15 21:03 Patient medically screened. [facility] 11/15 21:04 Order name: CBC with Diff; Complete Time: 23:25 [facility] 11/15 21:04 Order name: CMP; Complete Time: 23:46 [facility] 11/15 21:04 Order name: Lipase; Complete Time: 23:46 [facility] 11/15 21:05 Order name: Troponin High Sensitivity; Complete Time: 23:46 [facility] 11/15 21:05 Order name: D-Dimer; Complete Time: 23:35 [facility] 11/15 23:36 Order name: CT Chest For PE Angio [facility] 11/15 21:04 Order name: IV Saline Lock; Complete Time: 22:32 [facility] 11/15 21:04 Order name: Labs collected and sent; Complete Time: 22:32 [facility] 11/15 23:36 Order name: CT Abd/Pelvis - IV Contrast Only [facility] 11/16 00:02 Order name: US Extremity Venous W Compression Tj [facility] Administered Medications: 22:22 Not Given (Physicians discrsssionn): Pepcid (famotidine) 20 mg IVP once; dilute with 10 ll3 mL 0.9% NaCl; give over 2 minutes 22:45 Drug: Reglan (metoCLOPramide) 10 mg Route: IVP; Site: right antecubital; 3 11/16 00:07 Follow up: Response: No adverse reaction [facility] 11/15 22:45 Drug: diphenhydrAMINE 12.5 mg Route: IVP; Site: right antecubital; 3 11/16 00:07 Follow up: Response: No adverse reaction [facility] 11/15 22:46 Drug: NS 0.9% 1000 ml Route: IV; Rate: 1 bolus; Site: right antecubital; [facility] 11/16 00:07 Follow up: Response: No adverse reaction; Marked relief of symptoms; IV Status: ll3 Completed infusion; IV Intake: 1000ml Disposition Summary: 11/16/21 03:31 Discharge Ordered Location: Home [facility] Problem: [facility] Symptoms: have improved [facility] Condition: Stable [facility] Diagnosis - Abdominal pain, Generalized 7 Followup: [facility] - With: Private Physician - When: 1 - 2 days - Reason: Worsening of condition, Recheck today's complaints, Continuance of care, Re-evaluation by your physician Discharge Instructions: - Discharge Summary Sheet [facility] - Abdominal Pain, Adult, Mxrh-[id number] [facility] Forms: - Medication Reconciliation Form [facility] - Thank You Letter [facility] - Antibiotic Education [facility] - Prescription Opioid Use [facility] Prescriptions: - Pepcid 20 mg Oral Tablet - take 1 tablet by ORAL route every 12 hours for 5 days; 10 tablet; Refills: 0, [facility] Product Selection Permitted - dicyclomine 20 mg Oral Tablet - take 1 tablet by ORAL route 4 times per day As needed; 20 tablet; Refills: 0, [facility] Product Selection Permitted Addendum: 11/17/2021 07:19 Co-signature as Attending Physician, Rip Farnsworth MD. [facility] Signatures: Dispatcher [employer] EDBryce Moya PA PA jmm Bryson, James, RN RN jb4 Rip Farnsworth MD MD 7 Tonya Pitts RN RN ll3
--- NOTE | 2021-11-16 03:32 | ER ---
Nurse's Notes [facility] Name: Ben Joseph Age: 51 yrs Sex: Male : 1970 Arrival Date: 11/15/2021 Time: 20:21 Bed 27 Private MD: Diagnosis: Abdominal pain, Generalized Presentation: 11/15 20:28 Chief complaint: Patient states: I started having a hard time breathing about 2-3 days jb4 ago. It started as a pressure in my stomach and is getting worse. The pressure is right below my ribs on both sides. Coronavirus screen: At this time, the client does not indicate any symptoms associated with coronavirus-19. Ebola Screen: No symptoms or risks identified at this time. Initial Sepsis Screen: Does the patient meet any 2 criteria? No. Patient's initial sepsis screen is negative. Does the patient have a suspected source of infection? No. Patient's initial sepsis screen is negative. Risk Assessment: Do you want to hurt yourself or someone else? Patient reports no desire to harm self or others. Onset of symptoms was November 15, 2021. Transition of care: patient was not received from another setting of care. 20:28 Method Of Arrival: Ambulatory jb4 20:28 Acuity: GLORIA 3 jb4 Historical: - Allergies: 20:31 No Known Allergies; jb4 - Home Meds: 20:31 lisinopril 20 mg Oral tab 1 tab once daily [Active]; levothyroxine 25 mcg tab 1 tab jb4 once daily [Active]; Bystolic oral [Active]; - PMHx: 20:31 ruptured spleen; Hypothyroidism; HTN; hernia; jb4 - PSHx: 20:31 hernia repair; Appendectomy; jb4 - Immunization history:: Adult Immunizations up to date. - Social history:: Smoking status: Patient denies any tobacco usage or history of. Patient uses alcohol, occasionally. Patient/guardian denies using street drugs. Screenin:30 Abuse screen: Denies threats or abuse. Nutritional screening: No deficits noted. ll3 Tuberculosis screening: No symptoms or risk factors identified. Fall Risk No fall in past 12 months (0 pts). No secondary diagnosis (0 pts). IV access (20 points). Ambulatory Aid- None/Bed Rest/Nurse Assist (0 pts). Gait- Normal/Bed Rest/Wheelchair (0 pts) Mental Status- Oriented to own ability (0 pts). Total More Fall Scale indicates No Risk (0-24 pts). Assessment: 21:30 General: Appears uncomfortable, Behavior is calm, cooperative. Pain: Complains of pain ll3 in abdomen Pain currently is 8 out of 10 on a pain scale. 21:30 Neuro: No deficits noted. Level of Consciousness is awake, alert, obeys commands, ll3 Oriented to person, place, time, situation. Cardiovascular: No deficits noted. Patient's skin is warm and dry. GI: Abdomen is round distended, Bowel sounds present X 4 quads. Abd is soft X 4 quads Abdomen is tender to palpation X 4 quads. Reports lower abdominal pain, upper abdominal pain. Derm: Skin is pink, warm \T\ dry. Musculoskeletal: Circulation, motion, and sensation intact. 11/16 00:07 Reassessment: Patient and/or family updated on plan of care and expected duration. Pain ll3 level reassessed. Patient is alert, oriented x 3, equal unlabored respirations, skin warm/dry/pink. States H/A has improved Patient states feeling better. Patient states symptoms have improved. 01:00 Reassessment: Patient and/or family updated on plan of care and expected duration. Pain ll3 level reassessed. Patient is alert, oriented x 3, equal unlabored respirations, skin warm/dry/pink. Patient states symptoms have improved. 02:15 Reassessment: No changes from previously documented assessment. Patient and/or family ll3 updated on plan of care and expected duration. Pain level reassessed. Patient is alert, oriented x 3, equal unlabored respirations, skin warm/dry/pink. 03:51 Reassessment: No changes from previously documented assessment. Patient and/or family ll3 updated on plan of care and expected duration. Pain level reassessed. Patient is alert, oriented x 3, equal unlabored respirations, skin warm/dry/pink. Vital Signs: 11/15 20:28 BP 116 / 76; Pulse 91; Resp 16; Temp 98.1; Pulse Ox 96% on R/A; Weight 107.05 kg (R); jb4 Height 6 ft. 0 in. (182.88 cm) (R); Pain 7/10; 22:30 BP 113 / 77; Pulse 81; Resp 16; Pulse Ox 97% on R/A; ll3 11/16 00:00 BP 113 / 80; Pulse 75; Resp 17; Pulse Ox 98% on R/A; ll3 01:00 BP 121 / 79; Pulse 71; Resp 17; Pulse Ox 98% on R/A; ll3 03:30 BP 115 / 78; Pulse 72; Resp 17; Pulse Ox 97% on R/A; ll3 11/15 20:28 Body Mass Index 32.01 (107.05 kg, 182.88 cm) jb4 ED Course: 11/15 20:21 Patient arrived in ED. ja2 20:31 Triage completed. jb4 20:31 Arm band placed on right wrist. [facility] 20:37 Bryce Santiago PA is PHCP. [facility] 20:37 Rip Farnsworth MD is Attending Physician. [facility] 22:02 Tonya Pitts, MISA is Primary Nurse. 3 22:32 CBC with Diff Sent. zm 22:32 CMP Sent. zm 22:32 Lipase Sent. zm 22:33 Troponin High Sensitivity Sent. zm 22:33 D-Dimer Sent. zm 22:33 Inserted saline lock: 20 gauge in right antecubital area, using aseptic technique. zm Blood collected. 23:02 Patient has correct armband on for positive identification. Bed in low position. Call 3 light in reach. Side rails up X 1. 11/16 00:49 CT Chest For PE Angio In Process Unspecified. EDMS 00:50 CT Abd/Pelvis - IV Contrast Only In Process Unspecified. EDMS 01:00 US Extremity Venous W Compression Tj In Process Unspecified. EDMS 03:30 IV discontinued, intact, bleeding controlled, No redness/swelling at site. Pressure 3 dressing applied. 03:50 No provider procedures requiring assistance completed. ll3 Administered Medications: 11/15 22:22 Not Given (Physicians discrsssionn): Pepcid (famotidine) 20 mg IVP once; dilute with 10 ll3 mL 0.9% NaCl; give over 2 minutes 22:45 Drug: Reglan (metoCLOPramide) 10 mg Route: IVP; Site: right antecubital; 3 11/16 00:07 Follow up: Response: No adverse reaction 3 11/15 22:45 Drug: diphenhydrAMINE 12.5 mg Route: IVP; Site: right antecubital; 3 11/16 00:07 Follow up: Response: No adverse reaction 3 11/15 22:46 Drug: NS 0.9% 1000 ml Route: IV; Rate: 1 bolus; Site: right antecubital; ll3 11/16 00:07 Follow up: Response: No adverse reaction; Marked relief of symptoms; IV Status: ll3 Completed infusion; IV Intake: 1000ml Medication: 11/15 21:30 VIS not applicable for this client. ll3 Intake: 11/16 00:07 IV: 1000ml; Total: 1000ml. ll3 Outcome: 03:30 Discharged to home ambulatory, with significant other. ll3 03:30 Condition: stable 03:30 Discharge instructions given to patient, significant other, Instructed on discharge instructions, follow up and referral plans. medication usage, Demonstrated understanding of instructions, follow-up care, medications, Prescriptions given X 2. 03:31 Discharge ordered by . [facility] 04:05 Patient left the ED. 3 Signatures: Dispatcher [employer] EDMS Bryce Santiago PA PA jmm Bryson, James, RN RN jb4 Rip Farnsworth MD MD 7 Katalina Goldsmith [place], RN RN ll3 Li Landis Corrections: (The following items were deleted from the chart) 03:51 03:30 Reassessment: No changes from previously documented assessment. Patient and/or ll3 family updated on plan of care and expected duration. Pain level reassessed. Patient is alert, oriented x 3, equal unlabored respirations, skin warm/dry/pink. ll3 04:05 04:04 BP 115 / 78; Pulse 72bpm; Resp 17bpm; Pulse Ox 97% RA; ll3 ll3
[2021-11-16 04:17] VITALS: TEMP 98.1
[2021-11-16 04:25] VITALS: BP 115/78; O2SAT 97
--- NOTE | 2021-11-16 11:58 | RAD REPORT ---
EXAM DESCRIPTION: US - Extrem Venous W Compress Tj - 11/16/2021 1:44 am CLINICAL HISTORY: PAIN TECHNIQUE: Real-time duplex ultrasound scan of the bilateral lower extremity veins integrating B-mod e two-dimensional vascular structure, Doppler spectral analysis, color flow Doppler imaging and compr ession. COMPARISON: No relevant prior studies available. FINDINGS: Right deep veins: Unremarkable. No DVT in the right common femoral, femoral, proximal deep femoral, popliteal or visualized calf veins. The veins demonstrate normal color flow, are norm ally compressible, with normal phasic flow and/or augmentation response. Right superficial veins: Unremarkable. No thrombus in the visualized right great saphenous vein. Left deep veins: Unremarkable. No DVT in the left common femoral, femoral, proximal deep femoral, popliteal or visualized calf veins. The veins demonstrate normal color flow, are normally compress ible, with normal phasic flow and/or augmentation response. Left superficial veins: Unremarkable. No thrombus in the visualized left great saphenous vein. Soft tissues: No acute findings. No popliteal cyst. IMPRESSION: No evidence for deep venous thrombosis within the bilateral lower extremity. Electronically signed by: Nando Sahu MD 11/16/2021 1:15 AM CDT Due to temporary technical issues with the PACS/Fluency reporting system, reports are being signed by the in house radiologist without review as a courtesy to ensure prompt reporting. The interpreting r adiologist is fully responsible for the content of the report.
--- NOTE | 2021-11-16 12:00 | RAD REPORT ---
EXAM DESCRIPTION: CT - Chest For Pe Angio - 11/16/2021 6:37 am CLINICAL HISTORY: The patient is 51 years old and is Male; Pulmonary embolism (PE) suspected, positi ve D-dimer TECHNIQUE: Axial computed tomographic angiography images of the chest with intravenous contrast. S agittal and coronal reformatted images were created and reviewed. This CT exam was performed using one or more of the following dose reduction techniques: automated exposure control, adjustment of t he mA and/or kV according to patient size, and/or use of iterative reconstruction technique. MIP reconstructed images were created and reviewed. COMPARISON: No relevant prior studies available. FINDINGS: PULMONARY ARTERIES: There are no obvious filling defects identified within the pulmonary arteries to suggest pulmonary embolism. AORTA: No acute findings. No thoracic aortic aneurysm. LUNGS: Unremarkable. No mass. No consolidation. PLEURAL SPACE: Unremarkable. No significant effusion. No pneumothorax. HEART: Unremarkable. No cardiomegaly. No significant pericardial effusion. No evidence of RV dysfunction. BONES/JOINTS: Multilevel intervertebral disc space narrowing with anterior osteophyte formation of the mid to lower thoracic spine is present. No acute fracture. No dislocation. SOFT TISSUES: Unremarkable. LYMPH NODES: Unremarkable. No enlarged lymph nodes. IMPRESSION: No evidence of pulmonary embolism. Electronically signed by: Isabella Ac MD 11/16/2021 1:15 AM CDT Due to temporary technical issues with the PACS/Fluency reporting system, reports are being signed by the in house radiologist without review as a courtesy to ensure prompt reporting. The interpreting r adiologist is fully responsible for the content of the report.
--- NOTE | 2021-11-16 12:03 | RAD REPORT ---
EXAM DESCRIPTION: CT - Abdomen Pelvis W Contrast - 11/16/2021 6:38 am CLINICAL HISTORY: The patient is 51 years old and is Male; Abdominal pain, acute, nonlocalized TECHNIQUE: Axial computed tomography images of the abdomen and pelvis with intravenous contrast. S agittal and coronal reformatted images were created and reviewed. This CT exam was performed using one or more of the following dose reduction techniques: automated exposure control, adjustment of t he mA and/or kV according to patient size, and/or use of iterative reconstruction technique. COMPARISON: No relevant prior studies available. FINDINGS: LUNG BASES: 3 mm lingular pulmonary nodule is present. No routine follow-up imaging is r ecommended per Fleischner Society Guidelines. These guidelines do not apply to immunocompromised patients and patients with cancer. Follow up in pa tients with significant comorbidities as clinically warranted. For lung cancer screening, adhere to L lori-RADS guidelines. Reference: Radiology. 2017; 284(1):228-43. ABDOMEN: LIVER: The liver is enlarged and diffusely fatty. GALLBLADDER AND BILE DUCTS: The gallbladder is contracted. PANCREAS: No ductal dilation. No mass. SPLEEN: Unremarkable. ADRENALS: Unremarkable. No mass. KIDNEYS AND URETERS: Unremarkable. The kidneys enhance symmetrically. No obstructing renal or ur eteral calculus is seen. No hydronephrosis or hydroureter. No perinephric fluid or stranding. STOMACH AND BOWEL: Stomach is distended with food contents and air. The small bowel is normal in caliber. A moderate amount of stool is present throughout colon. There is no mucosal thickening or e vidence of bowel obstruction. PELVIS: APPENDIX: The appendix is surgically absent. BLADDER: Unremarkable. No mass. REPRODUCTIVE: Unremarkable as visualized. ABDOMEN and PELVIS: INTRAPERITONEAL SPACE: Unremarkable. No free air. No significant fluid collection. BONES/JOINTS: Mild degenerative change of the lower thoracic spine with intervertebral disc spac e narrowing and osteophyte formation is present. The vertebral body heights are maintained. There is no acute fracture. SOFT TISSUES: Surgical clips are present within the right inguinal region. VASCULATURE: Unremarkable. No abdominal aortic aneurysm. LYMPH NODES: Unremarkable. No enlarged lymph nodes. OTHER FINDINGS: Surgical clips are present within left upper quadrant. IMPRESSION: No acute findings on this contrasted CT of the abdomen and pelvis to explain the patient 's symptoms. Electronically signed by: Isabella Ac MD 11/16/2021 1:18 AM CDT Due to temporary technical issues with the PACS/Fluency reporting system, reports are being signed by the in house radiologist without review as a courtesy to ensure prompt reporting. The interpreting r adiologist is fully responsible for the content of the report.
== END 2021-11-16 04:05 | disposition home or self-care (01) ==
LOC: ER 20:16
DX: R10.84 Generalized abdominal pain (principal); R11.0 Nausea; I10 Essential (primary) hypertension; E03.9 Hypothyroidism, unspecified
CPT/HCPCS: 85025; 36415; 82565; 85379; 84484; 83690; 80053; 71275; 74177; 93970; Q9967; J2765; J1200; J7030; 96361; 96374; 96375; 99284